=== PATIENT | female | born 1990 | race Two or more races ===

== ENCOUNTER 2017-04-05 16:24 | Emergency (ER) | payer OTHER ==
--- NOTE | ~2017-04-05 | ER ---
[facility] AGE[facility] 27 Y [address] ROOM: [place] [address] LOCATION: [facility] ADMIT DATE: 04/05/2017 ER/Outpatient Report DISCHARGE DATE: 04/05/2017 FAMILY PHYSICIAN: Wiley Bender MD ATTENDING PHYSICIAN: Ishan Lloyd Time of Patient's Arrival: 1624 hours. Time of Patient's Evaluation: 1625 hours. CHIEF COMPLAINT: Vaginal bleeding. Approximately 6 weeks' . HISTORY OF PRESENT ILLNESS: This is a 27-year-old, pjf-Swy[place]-rdteyutf female who presents to the ER, who states that she is having vaginal bleeding that started yesterday and she had a positive test as well. Interpretation was done through the [employer]. The patient states that she took 2 home tests that were positive, but she has not had any verification at the doctor's office. She states she started having some spotting yesterday and then today the bleeding increased. She states that this is her third and she has never had a miscarriage before. She denies any pain. No lightheadedness or dizziness. No other problems at this time. ALLERGIES: NO KNOWN ALLERGIES. MEDICATIONS: Please see medication list in nurse's notes. PAST MEDICAL HISTORY: Negative. PAST SURGERIES: None. SOCIAL HISTORY: There is no smoking or drug use. REVIEW OF SYSTEMS: All systems reviewed and are negative with the exception of those discussed in the HPI. PHYSICAL EXAMINATION: VITAL SIGNS: Height 5 feet 4 inches stated, weight 72.4 kg taken, blood pressure is 120/62, pulse 76, respirations 16, temperature 99.5 degrees [facility] AGE: 27 Y [address] ROOM: [place] [address] LOCATION: [facility] ADMIT DATE: 04/05/2017 ER/Outpatient Report DISCHARGE DATE: 04/05/2017 FAMILY PHYSICIAN: Wiley Bender MD ATTENDING PHYSICIAN: Ishan Lloyd tympanically, and saturations 98% on room air. Kevin Coma score is 15. GENERAL: Alert, calm, well-developed 27-year-old, in no acute distress. HEENT: Head: Normocephalic. Eyes: Pupils are equal and reactive to light. She does display moist mucous membranes. LUNGS: Clear to auscultation bilaterally. No wheezes or crackles. HEART: Regular rate and rhythm. ABDOMEN: Soft. She has mild tenderness in her suprapubic area with palpation. : Exam was done. She had a large clot/tissue pulled out of the vaginal vault. The bleeding was wiped away with swabs and she had no further active bleeding. Cervical os is open. No other further clot or tissue was noted in the os. SKIN: Warm, dry, and intact. LABORATORY DATA: CBC: White count is 8.4, hemoglobin is 13.1, and platelets 298. HCG quant is 6457.0. Urinalysis was done via catheterization shows no infection. Blood type was O positive. IMPRESSION: Miscarriage. ASSESSMENT AND PLAN: We did monitor the patient here for quite some time after her pelvic exam and she had no further significant bleeding. We will dismiss her to home. She needs to monitor her bleeding and if her bleeding increases and she is needing to change her pad every hour, she needs to return here to the emergency room. Otherwise, I advised her to follow up with primary care physician or return here to the emergency room to have her serum HCG redrawn on Thursday. The patient and patient's friend understand and agree with care. CHEYANNE HOGAN PA-C FOR DO JACK HURTADO/arlin /[id number] d: 04/06/17 0118 t: 04/15/17 0651, OUTPATIENT REPORT
[2017-04-05 17:02] LABS: BASOPHIL % 0.2 %; EOSINOPHIL # 0.2 K/uL (0.0-0.5); EOSINOPHIL % 2.3 %; HEMATOCRIT 38.9 % (33.0-46.0); HEMOGLOBIN 13.1 g/dL (11.0-15.0); IMMATURE GRANULOCYTE % 0.4 %; LYMPHOCYTE # 2.5 K/uL (0.8-4.0); LYMPHOCYTE % 29.5 %; MCH 30.4 pg (27.0-34.0); MCHC 33.7 gm/dL (32.0-36.5); MCV 90.3 fl (83.0-98.0); MONOCYTE # 0.6 K/uL (0.0-1.0); MONOCYTE % 6.6 %; MPV 9.5 fl (9.4-12.4); NEUTROPHIL # (ANC) 5.1 K/uL (1.8-7.8); NRBC % 0 /100WBC (0-0.00); PLATELET COUNT 298 K/uL (150-450); RBC 4.31 M/uL (3.50-5.00); RDW-CV 12.1 % (11.9-14.6); WBC 8.4 K/uL (4.0-11.0)
[2017-04-05 17:19] LABS: BILIRUBIN URINE NEGATIVE (NEGATIVE); BLOOD URINE 25 /UL (NEGATIVE); COLOR URINE YELLOW (YELLOW); GLUCOSE URINE NEGATIVE (NEGATIVE); KETONE URINE NEGATIVE (NEGATIVE); LEUKOCYTES URINE NEGATIVE /UL (NEGATIVE); NITRITE URINE NEGATIVE (NEGATIVE); PH URINE 6.5 (4.0-8.0); PROTEIN URINE NEGATIVE (NEGATIVE); SPEC GRAVITY URINE 1.015 (1.003-1.035); TURBIDITY URINE CLEAR (CLEAR); UROBILINOGEN URINE NORMAL (NORMAL)
[2017-04-05 17:42] LABS: EPITHELIAL URINE 0-2 #/HPF (NEGATIVE); RBC URINE 0-2 #/HPF (NEGATIVE); WBC URINE RARE #/HPF (NEGATIVE)
[2017-04-05 17:43] LABS: BACTERIA URINE NEGATIVE (NEGATIVE); MUCUS URINE NEGATIVE (NEGATIVE)
== END 2017-04-05 18:10 | disposition disaster alternative care site (69) ==
LOC: GMED 16:24
PROVIDERS: Emergency Medicine
PROC: 0T9B70Z Drainage of Bladder with Drainage Device, Via Natural or Artificial Opening (ICD-10-PCS; principal; 2017-04-05)
DX: O03.9 Complete or unspecified spontaneous abortion without complication (principal)

== ENCOUNTER 2017-04-07 12:50 | Emergency (ER) | payer OTHER ==
--- NOTE | ~2017-04-07 | ER ---
PATIENT'S NAME: LAW SHAW [facility] AGE: 27 Y [address] ROOM: [place] [address] LOCATION: [facility] ADMIT DATE: 04/07/2017 ER/Outpatient Report DISCHARGE DATE: 04/07/2017 FAMILY PHYSICIAN: Wiley Bender MD ATTENDING PHYSICIAN: Cherry Bowen Time of Arrival: 1253 hours. Time of Exam: 1253 hours. CHIEF COMPLAINT: Blood draw. HISTORY OF PRESENT ILLNESS: The patient's information was obtained through use of the [employer]. The patient is 6 weeks' , reported to the ER on Thursday04/05/2017, had bleeding that had started on 04/04/2017 and gotten worse on the , so she came to the ER. On exam at that time, she did have an open cervical os, clot and tissue were evacuated at that time. The patient was instructed to follow up with Dr. Bender or return to the ER and she came here to the ER. She states she has had bleeding still, but no cramping, no clotting. She reports she is a 4, para 2, AB 1, had a miscarriage approximately 11 years ago in [place], and has 2 live children. Reports her blood type is O positive. She denies having any fever or chills. No nausea, no vomiting. ALLERGIES: NO KNOWN ALLERGIES. CURRENT MEDICATIONS: No current medications. PAST MEDICAL HISTORY: Benign. PAST SURGICAL HISTORY: Negative. SOCIAL HISTORY: She denies the use of tobacco, drugs, or alcohol. REVIEW OF SYSTEMS: All negative other than those mentioned in the HPI. PHYSICAL EXAMINATION: VITAL SIGNS: She weighed 73.4 kg, blood pressure is 106/58, pulse is 75, respirations 16, temperature of 98.6 tympanic, O2 saturation is 96% on room PATIENT'S NAME: LAW SHAW [facility] AGE: 27 Y [address] ROOM: [place] [address] LOCATION: ED ADMIT DATE: 04/07/2017 ER/Outpatient Report DISCHARGE DATE: 04/07/2017 FAMILY PHYSICIAN: Wiley Bender MD ATTENDING PHYSICIAN: Cherry Bowen. GENERAL: She is awake, alert, and oriented x4. SKIN: [place], warm, and dry. RESPIRATIONS: Even and nonlabored. Lung sounds are clear throughout. HEART: Regular rate and rhythm. ABDOMEN: Soft and nondistended. Bowel sounds are present. LABORATORY DATA: CBC was completed. Hemoglobin is stable at 13.4. Serum HCG was completed Thursday, her number was [id number], today it is 1163. IMPRESSION: Miscarriage. PLAN: Discussed with the patient. Home and rest. No intercourse. Monitor the bleeding. If the bleeding does not slow down or stop, she should follow up with Dr. Bender within the next week. She verbalized understanding. KEREN LOTT APRN FOR MD OBEY PEDRAZA/arlin /[id number] d: 04/07/177 t: 04/10/17 1218, OUTPATIENT REPORT
[2017-04-07 13:31] LABS: BASOPHIL % 0.2 %; EOSINOPHIL # 0.1 K/uL (0.0-0.5); HEMATOCRIT 39.2 % (33.0-46.0); HEMOGLOBIN 13.4 g/dL (11.0-15.0); IMMATURE GRANULOCYTE % 0.3 %; LYMPHOCYTE # 1.7 K/uL (0.8-4.0); LYMPHOCYTE % 28.3 %; MCH 31.2 pg (27.0-34.0); MCHC 34.2 gm/dL (32.0-36.5); MCV 91.2 fl (83.0-98.0); MONOCYTE # 0.4 K/uL (0.0-1.0); MONOCYTE % 5.8 %; MPV 9.7 fl (9.4-12.4); NEUTROPHIL # (ANC) 3.9 K/uL (1.8-7.8); NEUTROPHIL % 63.4 %; NRBC % 0 /100WBC (0-0.00); PLATELET COUNT 285 K/uL (150-450); RDW-CV 12.1 % (11.9-14.6); WBC 6.1 K/uL (4.0-11.0)
== END 2017-04-07 14:20 | disposition disaster alternative care site (69) ==
LOC: GMED 12:50
PROVIDERS: Nurse Practitioner Family
DX: O03.9 Complete or unspecified spontaneous abortion without complication (principal)